=== PATIENT | female | born 1975 | race Caucasian/White ===

== ENCOUNTER 2025-11-10 08:53 | Emergency (ER) | payer OTHER, SELFPAY ==
[2025-11-10 09:00] VITALS: BP 140/88
[2025-11-10] MEDS: TYLENOL 650 MG PO (10:54)
--- NOTE | 2025-11-10 15:46 | ED.MUSCINJ ---
HPI-Injury
General
Chief Complaint: Musculo-Skeletal Complaint
Source: patient
Exam Limitations: none
Time Seen by Provider: 11/10/25 09:18
Nursing documentation reviewed up to this point in time: agreed with
History of Present Illness-Injury
Initial Injury comments:
Note:
CHIEF COMPLAINT(S)
Severe pain in the leg post-fall.
HISTORY OF PRESENT ILLNESS
The patient is a 50-year-old female who presented with severe pain in the leg following a fall. The incident occurred when the patient slipped, causing one leg to go in one direction and the other leg in the opposite direction. The fall happened
rapidly, catching the patient off guard. Although there was significant pain, the patient did not initially believe a fracture had occurred. The pain is most severe when weight is placed on the heel, suggesting a potential injury in that area. Upon
examination, there was minor discomfort in a specific area of the leg. The patient reports difficulty bearing weight and ambulating due to the pain.
PHYSICAL EXAM
General: Alert, no acute distress.
Musculoskeletal: The patient expressed discomfort primarily when weight is applied to the heel. Slight tenderness was noted upon examination of the affected area in the leg.
PLAN
Review and further analyze x-ray results to confirm there is no fracture. Assist the patient with ambulation as needed due to difficulty bearing weight on the affected leg.
DIFFERENTIAL DIAGNOSIS
The Differential Diagnosis includes, in no particular order and is not limited to:
1. Sprain or strain of the leg.
2. Contusion of the leg.
3. Tendinitis.
4. Stress fracture.
5. Ligament tear.
6. Bursitis.
7. Infection (less likely due to acute presentation).
8. Deep vein thrombosis (consider if other symptoms present).
9. Nerve impingement or injury.
10. Bone bruise.
CARE-UPDATE
11/10/25 - 15:50
The X-ray of the left foot and ankle shows no fracture. The patient is stable and cleared for discharge.
Disposition:
SUMMARY OF ENCOUNTER
The patient, a 50-year-old female, presented to the emergency department with severe pain in the leg following a fall. The pain was most severe when weight was placed on the heel. An X-ray was performed which showed no fracture in the left foot and
ankle. The patient was diagnosed with a sprain. Management included providing crutches to assist with ambulation due to difficulty bearing weight, as well as placing an a-thrapped bandage for support.
DISPOSITION
Discharge.
PLAN
The patient was advised to follow-up with their primary care provider. Return precautions were discussed, and crutches were provided to aid mobility.
INDEPENDENT REVIEW OF LABS AND INTERPRETATION OF TESTS
- My independent interpretation of the X-ray of the left foot and ankle shows no fracture.
PATIENT EDUCATION AND COUNSELING
The patient was advised on the use of crutches for ambulation and instructed on return precautions should symptoms worsen.
FOLLOW-UP INSTRUCTIONS
The patient was instructed to follow up with primary care for further management of the sprain.
MEDICATION RECONCILIATION
Ibuprofen or acetaminophen was suggested for pain management as needed.
MEDICAL DECISION MAKING
- Complexity of Data Reviewed: Differential diagnosis includes sprain or strain of the leg, contusion of the leg, tendinitis, stress fracture, ligament tear, bursitis, infection, deep vein thrombosis, nerve impingement or injury, and bone bruise.
- Data:
- Category 1:
- My independent interpretation of X-ray indicates no fracture.
- Risk: The patient is safe for outpatient management with close follow-up. Prescription medication was not considered, as the patient can manage symptoms with [id number] medications like ibuprofen or acetaminophen.
DIAGNOSIS
- Sprain of foot, initial encounter (S93.401A)
Past History
Social History
Tobacco: Non-smoker
Personal:
Living: with family
Employment: Employed
Phy Exam
Physical Exam
Physical Exam:
.
Injury Course
Orders/Labs/Results
Orders:
Orders
11/10/25 09:01
Ankle, left 3 view CR [CR Ankle - Left Min 3 Views ] Urgent
Comment:
Reason For Exam: left ice pain slipped on the ice
11/10/25 09:34
CR Foot - Left Min 3 Views Urgent
Comment:
Reason For Exam: fall, ttp 5th metatarsal
11/10/25 10:15
[place] Wrap Left-Treatment ONCE
Crutches-Treatment ONCE
Acetaminophen [Tylenol] 650 mg PO NOW STA
*Pulse Oximetry
SaO2: 99
Oxygen Mode of Delivery: Room air
Patient hypoxic: no
*Critical Care Note
Total Time (30-74mins, 75-104mins- exclusive of procedures): Not Applicable
ED Attending Note
-
Portions of this chart may have been created with voice recognition software.� Occasional wrong word or��sound alike� substitutions may have occurred due to the inherent limitations of voice recognition software.
Discharge Plan
Departure
Patient Disposition: Home (Routine Discharge)
Date of Disposition: 11/10/25
Time of Disposition: 10:15
Patient with high blood pressure during this ER visit?: Yes
Condition: Good
Discharge Problem:
Left ankle sprain
Instructions: Ankle sprain - ED (DC), BLOOD PRESSURE
Prescriptions:
No Action
cephalexin 500 MG capsule
500 mg PO TID Qty: 30 0RF
hydrocodone-acetaminophen 7.5 MG/750 MG tablet
1 tab PO Q4HPRN PRN (Reason: PAIN) Qty: 20 0RF
Activity Restrictions/Additional Instructions:
Return for any concerns. Follow up with primary care. Return for any concerns.
Interventions
Interventions:
*General Assessment Last Done: 11/10/25 08:56
*Neglect/Abuse Screening Last Done: 11/10/25 08:56
*ED COVID-19 Vaccine History Last Done: 11/10/25 08:56
*ED Influenza Vaccine History Last Done: 11/10/25 08:56
*Risk Screen - Suicide (C-SSRS) Last Done: 11/10/25 08:56
*Nursing Disposition Last Done: 11/10/25 10:55
Discharge Date and Time
Discharge Date/Time: 11/10/25 10:56
Print Language: DIVEHI
== END 2025-11-10 10:56 | disposition home or self-care (01) ==
LOC: EMR 08:53
PROVIDERS: EMERGENCY PHYSICIAN Emergency Medicine; FAMILY PHYSICIAN Family Medicine
DX: S93.402A Sprain of unspecified ligament of left ankle, initial encounter (principal); W00.0XXA Fall on same level due to ice and snow, initial encounter
CPT/HCPCS: 99283; 73610; 73630